=== PATIENT | male | born 2000 | race Caucasian/White ===

== ENCOUNTER 2022-11-27 18:29 | Emergency (ER) | payer BC, SELFPAY ==
[2022-11-27] VITALS (11 sets, daily range): BP systolic 111–136; BP diastolic 66–85; PULSE 85–112; RESP 17–32; TEMP 36.3; O2SAT 98–99
--- NOTE | ~2022-11-27 | US_ITS ---
EXAMINATION: US venous doppler LE RT DATE: 11/27/2022 20:10 INDICATION: Right lower limb swelling TECHNIQUE: Yepez scale images without and with compression and Doppler images of the right lower extre mity veins were obtained. COMPARISON: None FINDINGS: There is thrombosis of the right common femoral vein, profunda femoral vein, femoral vein, popliteal vein, peroneal trunk, posterior tibial veins, and greater saphenous vein. IMPRESSION: 1. Venous thrombosis of all visualized right lower limb veins. These findings were discussed with Dr. Bradley Burroughs MD in the Emergency Department at 2026 hours on 11/27/2022. Reviewed, dictated and finalized at location F. IMPRESSION: 1. Venous thrombosis of all visualized right lower limb veins. These findings w ere discussed with Dr. Bradley Burroughs MD in the Emergency Department at 2026 hours on 11/27/2022.
--- NOTE | 2022-11-27 19:32 | ED.GENADULT ---
HPI - General Adult General Chief complaint: Extremity Injury, Lower Stated complaint: fall Time Seen by Provider: 11/27/22 19:17 History of Present Illness HPI narrative: 22-year-old male presented the emergency department for evaluation of a right leg injury. Patient states on Thursday he tripped while walking up some stairs and did injure his right leg. Patient states that the pain was not bearable but that when he woke up this morning he noticed that his right leg was swollen. Patient denies any associated chest pain or shortness of breath. Related Data Allergies Allergy/AdvReac Type Severity Reaction Status Date / Time ibuprofen Allergy Severe MOOD Verified 11/27/22 18:36 SWINGS, THROAT SWELLING Review of Systems Review of Systems: All systems reviewed & are unremarkable except as noted in HPI and below Exam Narrative: APPEARANCE: Well appearing, no pain, no distress, well-nourished. HEAD: normocephalic, atraumatic. EYES: PERRLA/EOMI, conjunctivae clear. NOSE: Normal no drainage NECK: Supple. No adenopathy, no masses. RESPIRATORY: Airway patent, respirations nonlabored. Clear to auscultation bilaterally, no rales, rhonchi, wheezing. CARDIOVASCULAR: Regular rate and rhythm without murmurs rubs or gallops. ABDOMINAL: Soft, nontender, nondistended, normal bowel sounds MUSCULOSKELETAL: Mild right leg erythema and edema. Medial thigh tenderness to palpation NEURO: Alert. Cranial nerves II through XII intact. Grossly intact SKIN: Warm, dry. Normal Color Course Course Emergency Course: 22-year-old male with with pain and erythema of right lower extremity. Ultrasound was ordered to rule out for DVT. 8:45 PM radiology called to report extensive DVT through the right lower extremity. [facility] was called for vascular consult due to the extensive DVT. 9:01 PM. Case was discussed with vascular at [facility] and patient was accepted for transfer. Awaiting call from hospitalist. Vascular recommended to start the patient on heparin and this was started in the ED. Patient was updated on the results of his work-up and plan for transfer. All question concerns were addressed. Patient continues to deny any chest pain or shortness of breath and patient's vital signs are within normal limits. On reexamination patient continues to have strong pedal pulses of the right lower extremity. 9:09 PM discussed case with the hospitalist, Dr. Elizondo and patient was accepted to med telemetry at [facility]. Vital Signs Vital signs: Vital Signs Temperature 97.3 F L 11/27/22 18:37 Pulse Rate 112 H 11/27/22 18:37 Respiratory Rate 18 11/27/22 18:37 Blood Pressure 136/85 11/27/22 18:37 Pulse Oximetry 98 11/27/22 18:37 Oxygen Delivery Room Air 11/27/22 18:37 Temperature 97.3 F L 11/27/22 18:37 Pulse Rate 85 11/27/22 23:01 Respiratory Rate 17 11/27/22 23:01 Blood Pressure 125/79 11/27/22 23:01 Pulse Oximetry 98 11/27/22 23:01 Oxygen Delivery Room Air 11/27/22 18:37 Medical Decision Making Vital Signs Vital Signs: Vital Signs Temperature 97.3 F L 11/27/22 18:37 Pulse Rate 112 H 11/27/22 18:37 Respiratory Rate 18 11/27/22 18:37 Blood Pressure 136/85 11/27/22 18:37 Pulse Oximetry 98 11/27/22 18:37 Oxygen Delivery Room Air 11/27/22 18:37 Temperature 97.3 F L 11/27/22 18:37 Pulse Rate 85 11/27/22 23:01 Respiratory Rate 17 11/27/22 23:01 Blood Pressure 125/79 11/27/22 23:01 Pulse Oximetry 98 11/27/22 23:01 Oxygen Delivery Room Air 11/27/22 18:37 Lab Data Lab results reviewed: Yes I reviewed the patient's lab results. 11/27/22 19:42 11/27/22 19:42 Labs: Lab Results 11/27/22 11/27/22 11/27/22 Range/Units 19:42 19:42 19:42 WBC 11.2 H (4.5-10.0) K/mm3 RBC 5.14 (4.6-6.20) M/mm3 Hgb 14.5 (14.0-18.0) g/dL Hct 44.0 (42.0-52.0) % MCV 85.6 (80-100) fl MCH 28.2 (26-34) pg MCHC 33.0 (32-36) g/
[2022-11-27 19:56] LABS: Basophils Absolute Auto 0.1 K/mm3 (0.0-0.1); Basophils Percent Auto 1.2 % (0.2-1.2); Eosinophils Absolute Auto 0.3 K/mm3 (0-0.3); Eosinophils Percent Auto 2.7 % (0-4.4); Hemoglobin 14.5 g/dL (14.0-18.0); Immature Granulocyte Absolute 0.23 K/mm3 (0.00-0.031); Immature Platelet Fraction Pct 6.5 % (0.9-11.2); Lymphocytes Absolute Auto 2.35 K/mm3 (0.9-3.2); Lymphocytes Percent Auto 20.9 % (18.3-44.2); Mean Corpuscular Hemoglobin 28.2 pg (26-34); Mean Corpuscular Volume 85.6 fl (80-100); Mean Platelet Volume 10.5 fl (7.4-10.4); Monocytes Absolute Auto 1.1 K/mm3 (0.1-0.6); Monocytes Percent Auto 9.8 % (2.6-8.5); Neutrophils Absolute Auto 7.1 K/mm3 (1.3-6.7); Neutrophils Percent Auto 63.4 % (45.5-73.1); Platelet Count Result 134 k/mm3 (150-375); Red Blood Count 5.14 M/mm3 (4.6-6.20); Red Cell Distribution Width 13.5 % (11.5-14.5); White Blood Count 11.2 K/mm3 (4.5-10.0)
[2022-11-27 20:05] LABS: Alanine Aminotransferase 92 U/L (6-50); Albumin Level 4.3 g/dL (3.5-5.1); Alkaline Phosphatase 107 U/L (38-126); Anion Gap 10 mmol/L (8-16); Aspartate Amino Transferase 34 U/L (17-59); Blood Urea Nitrogen 15 mg/dL (9-20); Calcium 8.9 mg/dL (8.4-10.2); Carbon Dioxide 26 mmol/L (22-30); Chloride 100 mmol/L (98-107); Estimated CRCL calculation 167 ml/min; Estimated Glomerular Filt Rate > 60; Glucose 93 mg/dL (65-110); Potassium 3.4 mmol/L (3.4-5.0); Sodium 136 mmol/L (137-145)
[2022-11-27 20:07] LABS: INR 1.2; Prothrombin Time 14.3 Seconds (11.1-14.7)
[2022-11-27 20:08] LABS: Partial Thromboplastin Time 38.1 SECONDS (22.3-36.8)
[2022-11-27 20:19] LABS: Anisocytosis 1+ (NORMAL); Platelet Estimate Adequate (Adequate)
[2022-11-27 20:20] LABS: Atypical Lymphocytes Present; Schistocytes None Seen (NORMAL)
[2022-11-27] MEDS: fentaNYL CITRATE INJ (*CRX) 100 MCG/2 ML VIAL 62.4 MCG IV PUSH (20:33)
--- NOTE | 2022-11-27 21:01 | ECG_ITS ---
Measurements Intervals [place] Rate: 89 P: 18 UT: 112 QRS: 50 QRSD: 93 T: 22 QT: 352 QTc: 430 Interpretive Statements SINUS RHYTHM WITH SINUS ARRHYTHMIA WITH SHORT UT INTERVAL BASELINE ARTIFACT- III BORDERLINE ECG NO PREVIOUS ECG AVAILABLE FOR COMPARISON Electronically Signed On 11-27-2022 22:36:57 CDT by Johnnie Lam D.O.
[2022-11-27] MEDS: HEPARIN SODIUM 5,000 UNITS/ML VIAL 7500 UNITS IV PUSH (21:28)
[2022-11-27] MEDS: HEPARIN SOD/D5W 100 UNITS/ML 25,000 UNITS/250 ML BAG 15 UNITS IV CONT (21:29)
[2022-11-27] MEDS: HYDROmorphone HCL INJ (*CRX) 1 MG/ML SYR IV PUSH (21:44)
--- NOTE | 2022-11-27 22:44 | PC.NURSE ---
attempted to call report to Candice. RN unable to take report at this time.
--- NOTE | 2022-11-27 23:15 | PC.NURSE ---
attempted to call report. Per Marie at [facility], bed hasn't been assigned yet. Marie to call bed placement and call back with update.
--- NOTE | 2022-11-27 23:36 | PC.NURSE ---
Report given to Marie CORREA at [facility] for patient transfer. all questions answered at time of report.
[2022-11-28] MEDS: HYDROmorphone HCL INJ (*CRX) 1 MG/ML SYR IV PUSH (00:08)
--- NOTE | 2022-11-28 00:39 | PC.NURSE ---
Patient transfering with heparin infusing to [facility]
== END 2022-11-28 00:40 | disposition short-term general hospital (02) ==
PROVIDERS: Emergency Provider Emergency Medicine
DX: I82.411 Acute embolism and thrombosis of right femoral vein (principal); I82.431 Acute embolism and thrombosis of right popliteal vein; I82.451 Acute embolism and thrombosis of right peroneal vein; I82.441 Acute embolism and thrombosis of right tibial vein; I82.811 Embolism and thrombosis of superficial veins of right lower extremity
CPT/HCPCS: 36415; 80053; 85025; 85055; 85610; 85730; 93005; 93971; 96374; 96375; 99285; J1170; J1644; J3010

== ENCOUNTER 2023-02-01 19:35 | Observation (INO) | payer BC, SELFPAY ==
--- NOTE | ~2023-02-01 | XR_ITS ---
Clinical Indication: Chest pain PA and lateral views of the chest: Comparison: None Findings: The lungs are clear, without evidence of focal consolidation or pleural effusion. Cardiome diastinal silhouette is within normal limits. Bones and soft tissues are unremarkable. Impression: Normal chest. Reviewed, dictated and finalized at location . Impression: Normal chest.
--- NOTE | ~2023-02-01 | CT_ITS ---
Clinical Indication: Chest pain CT Scan of the Chest with Contrast: Technique: Contiguous sections were acquired throughout the chest after intravenous administration of 100 cc of Omnipaque 350. Dose reduction technique was used on this scan by utilizing automated expos ure control and iterative reconstruction technique. The dose-length product (DLP) was 786.24 mGy-cm. Findings: There is no evidence of any significant mediastinal, hilar or axillary lymphadenopathy. Suspected sin gle small pulmonary most noted in a segmental branch in the left lower lobe. There is no evidence of aortic dissection or aneurysm. There is no evidence of pleural or pericardial effusion. The lungs are clear, aside from focal atelectasis or scarring at the lingula. Images through the upper abdomen reveal no abnormalities. Impression: Suspected single small pulmonary embolus in a segmental branch the left lower lobe. Focal atelectasis or scarring at the lingula, otherwise clear lungs.. Reviewed, dictated and finalized at [facility] [place]. Impression: Suspected single small pulmonary embolus in a segmental branch the left lower l obe. Focal atelectasis or scarring at the lingula, otherwise clear lungs..
--- NOTE | 2023-02-01 19:39 | ECG_ITS ---
Measurements Intervals [place] Rate: 77 P: 40 [place]: 129 QRS: 64 QRSD: 109 T: 47 QT: 386 QTc: 438 Interpretive Statements SINUS RHYTHM WITH SINUS ARRHYTHMIA POSSIBLE RIGHT VENTRICULAR CONDUCTION DELAY [RSR (QR) IN V1/V2] BORDERLINE ECG Electronically Signed On 02-02-2023 10:19:46 CDT by Deven Mittal M.D.
[2023-02-01 19:47] VITALS: O2SAT 98
[2023-02-01 19:53] VITALS: BP 133/82; PULSE 75; RESP 19; TEMP 36.4; O2SAT 99
[2023-02-01 19:59] LABS: Basophils Absolute Auto 0.1 K/mm3 (0.0-0.1); Basophils Percent Auto 1.6 % (0.2-1.2); Eosinophils Absolute Auto 0.5 K/mm3 (0-0.3); Eosinophils Percent Auto 6.5 % (0-4.4); Hematocrit 50.1 % (42.0-52.0); Hemoglobin 16.9 g/dL (14.0-18.0); Immature Granulocyte Absolute 0.02 K/mm3 (0.00-0.031); Immature Granulocyte Percent A 0.3 % (0-0.5); Lymphocytes Absolute Auto 1.74 K/mm3 (0.9-3.2); Lymphocytes Percent Auto 23.7 % (18.3-44.2); Mean Corpuscular HGB Conc 33.7 g/dl (32-36); Mean Corpuscular Hemoglobin 28.8 pg (26-34); Mean Corpuscular Volume 85.5 fl (80-100); Monocytes Absolute Auto 0.6 K/mm3 (0.1-0.6); Monocytes Percent Auto 8.5 % (2.6-8.5); Neutrophils Absolute Auto 4.4 K/mm3 (1.3-6.7); Neutrophils Percent Auto 59.4 % (45.5-73.1); Platelet Count Result 217 k/mm3 (150-375); Red Blood Count 5.86 M/mm3 (4.6-6.20); Red Cell Distribution Width 13.6 % (11.5-14.5); White Blood Count 7.3 K/mm3 (4.5-10.0)
[2023-02-01 20:09] LABS: Prothrombin Time 13.7 Seconds (11.1-14.7)
[2023-02-01 20:10] LABS: Partial Thromboplastin Time 56.4 SECONDS (22.3-36.8)
[2023-02-01 20:14] LABS: Alanine Aminotransferase 48 U/L (6-50); Albumin Level 4.9 g/dL (3.5-5.1); Alkaline Phosphatase 86 U/L (38-126); Anion Gap 10 mmol/L (8-16); Aspartate Amino Transferase 39 U/L (17-59); Bilirubin,Total 0.9 mg/dL (0.2-1.3); Blood Urea Nitrogen 16 mg/dL (9-20); Calcium 9.2 mg/dL (8.4-10.2); Carbon Dioxide 25 mmol/L (22-30); Chloride 106 mmol/L (98-107); Estimated CRCL calculation 149 ml/min; Estimated Glomerular Filt Rate > 60; Glucose 101 mg/dL (65-110); Lipase 392 U/L (23-300); Potassium 4.3 mmol/L (3.4-5.0); Sodium 141 mmol/L (137-145)
[2023-02-01 20:21] LABS: NT Pro B Type Natriuretic Pept < 20 pg/mL (19.9-100); Troponin I < 0.012 ng/mL (0.000-0.034)
--- NOTE | 2023-02-01 20:32 | ED.GENADULT ---
HPI - General Adult General Chief complaint: Chest Pain Stated complaint: chest pain, right arm pain Time Seen by Provider: 02/01/23 19:44 History of Present Illness HPI narrative: Patient a 22-year-old gentleman who presents the emergency department with chief complaint of chest pain. The patient reports that he has history of DVT that he was treated with a surgical procedure and then was supposed to be on oral anticoagulants patient reports he had 1 month of the medication and then there was issues with his insurance and was unable to continue the anticoagulant the patient reports that his primary doctor is planning on starting him on Coumadin this week after he gets a CT scan to evaluate for pulmonary embolism the patient states for the last 3 days has been having worsening discomfort in his chest and states that he is concerned that he may have a PE Related Data Allergies Allergy/AdvReac Type Severity Reaction Status Date / Time ibuprofen Allergy Severe MOOD Verified 02/01/23 19:52 SWINGS, THROAT SWELLING Review of Systems Review of Systems: A 10 system review of systems was completed on the patient and is negative except for what is stated in the HPI. Nursing and ancillary documentation was reviewed. Exam Narrative: GENERAL: Well-appearing, well-nourished, and in no acute distress. HEAD: Normocephalic, atraumatic. EYES: PERRLA and EOMI. ENT: Nares clear, no rhinorrhea or epistaxis. Mucous membranes moist. NECK: Supple. CHEST: Clear to auscultation. No respiratory distress. HEART: Regular rate and rhythm. No murmur heard. Normal peripheral pulses. ABDOMEN: Soft, nontender, nondistended, normal active bowel sounds. EXTREMITIES: Normal range of motion. No edema. SKIN: Warm, dry, no rash. NEURO: No focal deficits. Alert and oriented x3. PSYCH: Normal mood and affect. Course Vital Signs Vital signs: Vital Signs Pulse Oximetry 98 02/01/23 19:47 Oxygen Delivery Room Air 02/01/23 19:47 Temperature 36.4 C 02/01/23 19:53 Pulse Rate 72 02/01/23 21:00 Respiratory Rate 20 02/01/23 21:00 Blood Pressure 125/83 02/01/23 21:00 Pulse Oximetry 98 02/01/23 21:00 Oxygen Delivery Room Air 02/01/23 19:47 Medical Decision Making [facility] Narrative Medical decision making narrative: Differential diagnosis includes pulmonary embolism, ACS, noncardiac chest pain EKG was obtained which showed sinus rhythm rate of [address] elevation or ST depression Laboratory studies were obtained which showed a normal CBC normal electrolytes normal liver enzymes lipase was 392 chest x-ray showed no acute abnormalities CTA of the chest showed a small subsegmental pulmonary embolism in the left lower lobe Due to the patient being unable to obtain a DOAC due to insurance related issues and knowing that the patient will be started on Coumadin patient was admitted overnight for heparin bridging the case was discussed with Dr. Cunningham who accepted the patient Vital Signs Vital Signs: Vital Signs Pulse Oximetry 98 02/01/23 19:47 Oxygen Delivery Room Air 02/01/23 19:47 Temperature 36.4 C 02/01/23 19:53 Pulse Rate 72 02/01/23 21:00 Respiratory Rate 20 02/01/23 21:00 Blood Pressure 125/83 02/01/23 21:00 Pulse Oximetry 98 02/01/23 21:00 Oxygen Delivery Room Air 02/01/23 19:47 Lab Data 02/01/23 19:50 02/01/23 19:50 Labs: Lab Results 02/01/23 02/01/23 02/01/23 Range/Units 19:50 19:50 19:50 WBC 7.3 (4.5-10.0) K/mm3 RBC 5.86 (4.6-6.20) M/mm3 Hgb 16.9 (14.0-18.0) g/dL Hct 50.1 (42.0-52.0) % MCV 85.5 (80-100) fl MCH 28.8 (26-34) pg MCHC 33.7 (32-36) g/dl RDW 13.6 (11.5-14.5) % Plt Count 217 D (150-375) k/mm3 MPV 10.0 (7.4-10.4) fl Immature Gran % (Auto) 0.3 (0-0.5) % Neut % (Auto) 59.4 (45.5-73.1) % Lymph % (Auto) 23.7 (18.3-44.2) % [place] % (Auto) 8.5 (2
[2023-02-01 21:00] VITALS: BP 125/83; PULSE 72; RESP 20; O2SAT 98
--- NOTE | 2023-02-01 22:11 | PM.IMHP ---
H&P: HPI History of Present Illness Date/Time: 02/01/23 22:11 Chief Complaint: Chest pain. Narrative: This is a 22-year-old male with past medical history significant for right lower extremity DVT, thrombectomy, this was roughly 4 weeks ago, patient has been unable to get his Eliquis as a result of this has been without anticoagulation. Today presented to the emergency room after he has had chest pain localized to the retrosternal area and shortness of breath with mild exertion denies hemoptysis, has had some cough nonproductive, dry. No fevers, no rigors, no chills, no nausea, no vomiting, no abdominal pain, no leg swelling, no ankle swelling, no calves swelling. Preliminary workup was significant for a chest x-ray was reported as: Clinical Indication: Chest pain ?PA and lateral views of the chest: Comparison: None Findings: The lungs are clear, without evidence of focal consolidation or pleural effusion.? Cardiomediastinal silhouette is within normal limits. Bones and soft tissues are unremarkable. ? Impression: ? Normal chest. A CT was reported as: Clinical Indication: Chest pain CT Scan of the Chest with Contrast: Technique: Contiguous sections were acquired throughout the chest after intravenous administration of 100 cc of Omnipaque 350. Dose reduction technique was used on this scan by utilizing automated exposure control and iterative reconstruction technique. The dose-length product (DLP) was 786.24 mGy-cm. Findings: There is no evidence of any significant mediastinal, hilar or axillary lymphadenopathy. Suspected single small pulmonary most noted in a segmental branch in the left lower lobe. There is no evidence of aortic dissection or aneurysm. There is no evidence of pleural or pericardial effusion. The lungs are clear, aside from focal atelectasis or scarring at the lingula. Images through the upper abdomen reveal no abnormalities. Impression: Suspected single small pulmonary embolus in a segmental branch the left lower lobe. Focal atelectasis or scarring at the lingula, otherwise clear lungs.. Review of Systems Review of Systems: Chest pain, shortness of breath with mild exertion. Constitutional: Constitutional: Denies chills, Denies fatigue, Denies fever(s), Denies malaise, Denies night sweats, Denies poor appetite and Denies weakness Eyes: Eyes: Denies change in vision ENT: Denies dysphagia and Denies odynophagia Cardiovascular: Cardiovascular: Reports chest pain, Denies leg edema, Denies lightheadedness, Reports radiating jaw, neck or arm pain, Denies palpitations, Reports dyspnea on exertion and Denies orthopnea Respiratory: Respiratory: Reports cough, Denies excessive phlegm production and Denies dyspnea Gastrointestinal: Gastrointestinal: Denies abdominal pain, Denies dyspepsia, Denies heartburn, Denies diarrhea, Denies nausea and Denies vomiting Genitourinary: Genitourinary: Reports no additional male genitourinary complaints and Reports as per HPI Musculoskeletal: Musculoskeletal: Denies myalgias Integumentary/Breasts: Skin/Breast: Denies rash Neurologic: Denies focal weakness and Denies Sensory deficit (Neuro) Psychiatric: Psychiatric: Reports no additional psychiatric complaints and Reports as per HPI Endocrine: Endocrine: Denies cold intolerance, Denies flushing, Denies heat intolerance, Denies polyphagia, Denies polydipsia and Denies palpitations Hematologic/Lymphatic: Hematologic/Lymphatic: Reports no additional hematologic/lymphatic complaints and Reports as per HPI Allergic/Immunologic: Allergic/Immunologic: Reports no additional allergic/immunologic complaints and Reports as per HPI PMFSH Family History Family History (Updated 02/01/23 @ 23:07 by Leilani Soler RN) Father Acute myocardial infarction History of blood clots Cerebrovascular accident Congestive heart failure Diabetes mellitus Mother Diabetes mellitus Hypertension Social History
[2023-02-01] MEDS: HEPARIN SODIUM 5,000 UNITS/ML VIAL 8500 UNITS IV PUSH (22:14)
[2023-02-01] MEDS: HEPARIN SOD/D5W 100 UNITS/ML 25,000 UNITS/250 ML BAG 15 UNITS IV CONT (22:20)
[2023-02-01 22:25] VITALS: BP 116/76; PULSE 75; RESP 15; O2SAT 98
--- NOTE | 2023-02-01 23:04 | ADMGEN ---
This patient, Tramaine Lawrence, was admitted to Medical Room 249-01. Patient/family oriented to hospital policies and general routines including ID bracelet, bed and alarms, visiting hours, pain management, procedures, bathroom and other care routines, personal items, smoking policy, room service/diet, and visiting hours. Information on how to activate the Rapid Response Team has been discussed. Patient/Family are encouraged to report perceived risks to care and to ask questions if they do not understand what they are told or what they should do.
[2023-02-01 23:12] VITALS: BP 131/75; PULSE 72; RESP 16; TEMP 36.2; O2SAT 99
[2023-02-02] VITALS (11 sets, daily range): BP systolic 120–131; BP diastolic 78–84; PULSE 63–87; RESP 16–20; TEMP 36–36.8; O2SAT 96–99
--- NOTE | 2023-02-02 | ECHO_ITS ---
Patient Info Name: Tramaine Lawrence Age: 22 years : 2000 Gender: Male Ht: 69 in Wt: 235 lbs BSA: 2.32 m2 HR: 76 bpm BP: 130 / 84 mmHg Heart Rhythm: Sinus Rhythm Technical Quality: Good Exam Date: 02/02/2023 2:34 PM Exam Location: [facility] Pulmonary Patient Status: Outpatient Admit Date: 02/01/2023 Staff Ordering Physician: Joanne Boyec MD Milling Machinist: Roxanne Hernandez RDCS Attending Provider: Joanne Boyce MD Referring Physician: Austen TREVIÑO; Exam Type: CA echo doppler color flow Study Info Indications - PE Complete two-dimensional, color flow and Doppler transthoracic echocardiogram is performed. Summary 1. Complete two-dimensional, color flow and Doppler transthoracic echocardiogram is performed. 2. Left ventricular chamber dimension is normal. 3. Left ventricular systolic function is normal, estimated at 60-65%. 4. Right ventricular chamber dimension is normal. 5. Right ventricular systolic function is normal. 6. No significant valvular disease. Left Ventricle Left ventricular chamber dimension is normal. Left ventricular systolic function is normal, estimated at 60-65%. There is no increased left ventricular wall thickness. The left ventricular diastolic function is normal. Global longitudinal strain is normal at -18 %. Right Ventricle Right ventricular chamber dimension is normal. Right ventricular systolic function is normal. Left Atria Left atrial chamber dimension is normal. Right Atria Right atrial chamber dimension is normal. Atrial Septum Intact interatrial septum visualized by color flow imaging. Aortic Valve The aortic valve is trileaflet. There is no aortic valve stenosis. There is no aortic valve regurgitation. Pulmonic Valve The pulmonic valve is normal. There is no pulmonic regurgitation. Mitral Valve There is no mitral valve stenosis. There is trace mitral valve regurgitation. Tricuspid Valve There is trace tricuspid valve regurgitation. Pericardium/Pleural There is no pericardial effusion. Inferior Vena Cava Normal inferior vena cava with >50% collapse upon inspiration consistent with normal right atrial pressure, 3 mmHg. Aorta The aortic root size at the sinus of Valsalva is normal. Left Ventricular Outflow Tract Name Value Normal LVOT 2D LVOT Diameter 2.2 cm LVOT Doppler LVOT Peak Gradient 4 mmHg LVOT Mean Gradient 2 mmHg LVOT VTI 22 cm LVOT VTI/AV VTI Ratio 1.0 LVOT Stroke Volume 83 ml LVOT CO 4.6 l/min LVOT CI 2.0 l/min/m2 Pulmonic Valve Name Value Normal RVOT Doppler RVOT Peak Gradient 2 mmHg PV Doppler PV Peak Gradient 3 mmHg Cassy
[2023-02-02 02:20] LABS: Troponin I < 0.012 ng/mL (0.000-0.034)
[2023-02-02 06:00] LABS: Basophils Absolute Auto 0.1 K/mm3 (0.0-0.1); Basophils Percent Auto 1.6 % (0.2-1.2); Eosinophils Absolute Auto 0.6 K/mm3 (0-0.3); Eosinophils Percent Auto 8.1 % (0-4.4); Hematocrit 48.6 % (42.0-52.0); Hemoglobin 16.3 g/dL (14.0-18.0); Immature Granulocyte Absolute 0.03 K/mm3 (0.00-0.031); Immature Granulocyte Percent A 0.4 % (0-0.5); Lymphocytes Absolute Auto 2.53 K/mm3 (0.9-3.2); Lymphocytes Percent Auto 37.3 % (18.3-44.2); Mean Corpuscular HGB Conc 33.5 g/dl (32-36); Mean Corpuscular Hemoglobin 28.8 pg (26-34); Mean Platelet Volume 10.4 fl (7.4-10.4); Monocytes Absolute Auto 0.6 K/mm3 (0.1-0.6); Monocytes Percent Auto 8.7 % (2.6-8.5); Neutrophils Percent Auto 43.9 % (45.5-73.1); Platelet Count Result 186 k/mm3 (150-375); Red Blood Count 5.65 M/mm3 (4.6-6.20); Red Cell Distribution Width 13.5 % (11.5-14.5); White Blood Count 6.8 K/mm3 (4.5-10.0)
[2023-02-02 06:39] LABS: Partial Thromboplastin Time 196.7 SECONDS (22.3-36.8)
[2023-02-02 12:56] LABS: Partial Thromboplastin Time 89.7 SECONDS (22.3-36.8)
--- NOTE | 2023-02-02 13:08 | PM.IMPN ---
Progress Note: A&P Assessment and Plan (1) Pulmonary embolism: Qualifiers: Acute cor pulmonale presence: unspecified Chronicity: acute Pulmonary embolism type: unspecified Qualified Code(s): I26.99 - Other pulmonary embolism without acute cor pulmonale Code(s): I26.99 - Other pulmonary embolism without acute cor pulmonale Status: Acute Plan Presented with chest pain. Recent history of DVT requiring thrombectomy October 2022. Was treated with Eliquis which he only took for a month and had issue with insurance. Been off since 2-3 weeks now. Plan to be started on Coumadin after CT scan evaluation but presented back again with chest pain. Labs unremarkable discussed with the care coordination CTA done showed suspected single small pulmonary embolism in the segmental branch of left lower lobe along with focal atelectasis or scarring at the lingula otherwise clear lungs. Will initiate Lovenox and warfarin. Insurance issue with DOACs Subjective Date/time seen: 02/02/23 13:08 Interval history: Reviewed. Discussed with the patient and the . Presented with chest pain. Recent history of DVT requiring thrombectomy October 2022. Was treated with Eliquis which he only took for a month and had issue with insurance. Been off since 2-3 weeks now. Plan to be started on Coumadin after CT scan evaluation but presented back again with chest pain Review of Systems Review of Systems: All systems reviewed & are unremarkable except as noted in HPI and below Exam Narrative: GENERAL: Well-appearing, well-nourished, and in no acute distress. HEAD: Normocephalic, atraumatic. EYES: PERRLA and EOMI. ENT: Nares clear, no rhinorrhea or epistaxis.? Mucous membranes moist. NECK: Supple. Nontender CHEST: Clear to auscultation.? No respiratory distress. HEART: Regular rate and rhythm.? No murmur heard.? Normal peripheral pulses. ABDOMEN: Soft, nontender, nondistended, normal active bowel sounds. EXTREMITIES: Normal range of motion.? No edema. SKIN: Warm, dry, no rash. NEURO: No focal deficits.? Alert and oriented x3. PSYCH: Normal mood and affect. Objective Data Vital Signs Vital Signs: Vital Signs - 24 hr 02/01/23 19:47 02/01/23 19:53 02/01/23 21:00 Temperature 97.6 F Pulse Rate 75 72 Respiratory Rate 19 20 Blood Pressure 133/82 125/83 Pulse Oximetry 98 99 98 Oxygen Delivery Room Air 02/01/23 22:25 02/01/23 23:12 02/01/23 23:12 Temperature 97.2 F L Pulse Rate 75 72 Respiratory Rate 15 16 Blood Pressure 116/76 131/75 Pulse Oximetry 98 99 Oxygen Delivery Room Air 02/02/23 00:00 02/02/23 04:00 02/02/23 06:06 Temperature Pulse Rate 86 63 63 Respiratory Rate 16 Blood Pressure Pulse Oximetry 99 Oxygen Delivery Room Air 02/02/23 06:00 02/02/23 08:25 02/02/23 08:00 Temperature 96.8 F L Pulse Rate 71 Respiratory Rate 16 Blood Pressure 130/84 Pulse Oximetry 98 98 98 Oxygen Delivery Room Air Room Air 02/02/23 08:00 Temperature Pulse Rate 75 Respiratory Rate Blood Pressure Pulse Oximetry Oxygen Delivery Intake/Output Intake/Output: Intake & Output 01/30/23 01/31/23 02/01/23 02/02/23 23:59 23:59 23:59 23:59 Intake Total 1852 Balance 1852 Meds/Results Medications: Active Medications Generic Name Dose Route Start Last Admin Trade Name Freq PRN Reason Stop Dose Admin Acetaminophen 1,000 mg 02/02/23 00:18 Acetaminophen 500 Mg Tablet PO Q6H PRN Mild Pain (1-3) or Fever Al Hydrox/Mg Hydrox/Simethicone 30 ml 02/02/23 00:22 Mag Hydrox/Al Hydrox/Simeth 30 Ml Udc PO Q6H PRN Indigestion Albuterol 2.5 mg 02/02/23 00:18 Albuterol Sulfate Neb 2.5 Mg/3 Ml Inh INHALATION Q6HRT PRN Shortness Of Breath Heparin Sodium (Porcine) 3,500 units 02/01/23 21:49 Heparin Sodium 5,000 Units/Ml Vial IV PUSH PRN PRN aPTT 55 - 70 seconds Heparin Sodium (Porcine) 7,000 units
[2023-02-02] MEDS: WARFARIN (*PBKC) 5 MG TABLET PO (17:59)
[2023-02-02] MEDS: ENOXAPARIN 120 MG/0.8 ML SYRINGE 107 MG SUB-Q (17:59)
[2023-02-02 19:55] LABS: Partial Thromboplastin Time 63.6 SECONDS (22.3-36.8)
[2023-02-03] VITALS: PULSE 69
[2023-02-03 04:00] VITALS: PULSE 59
[2023-02-03 06:00] VITALS: BP 121/67; PULSE 68; RESP 20; TEMP 36.1; O2SAT 99
[2023-02-03 06:11] LABS: Basophils Absolute Auto 0.1 K/mm3 (0.0-0.1); Basophils Percent Auto 1.7 % (0.2-1.2); Eosinophils Absolute Auto 0.5 K/mm3 (0-0.3); Eosinophils Percent Auto 8.3 % (0-4.4); Hematocrit 50.2 % (42.0-52.0); Hemoglobin 16.6 g/dL (14.0-18.0); Immature Granulocyte Absolute 0.02 K/mm3 (0.00-0.031); Immature Granulocyte Percent A 0.3 % (0-0.5); Lymphocytes Absolute Auto 2.13 K/mm3 (0.9-3.2); Lymphocytes Percent Auto 32.9 % (18.3-44.2); Mean Corpuscular HGB Conc 33.1 g/dl (32-36); Mean Corpuscular Hemoglobin 28.3 pg (26-34); Mean Corpuscular Volume 85.5 fl (80-100); Monocytes Absolute Auto 0.5 K/mm3 (0.1-0.6); Monocytes Percent Auto 7.3 % (2.6-8.5); Neutrophils Absolute Auto 3.2 K/mm3 (1.3-6.7); Neutrophils Percent Auto 49.5 % (45.5-73.1); Platelet Count Result 197 k/mm3 (150-375); Red Blood Count 5.87 M/mm3 (4.6-6.20); Red Cell Distribution Width 13.4 % (11.5-14.5); White Blood Count 6.5 K/mm3 (4.5-10.0)
[2023-02-03 06:25] LABS: Alanine Aminotransferase 69 U/L (6-50); Albumin Level 4.3 g/dL (3.5-5.1); Alkaline Phosphatase 82 U/L (38-126); Anion Gap 10 mmol/L (8-16); Aspartate Amino Transferase 48 U/L (17-59); Bilirubin,Total 0.7 mg/dL (0.2-1.3); Blood Urea Nitrogen 12 mg/dL (9-20); Calcium 8.8 mg/dL (8.4-10.2); Carbon Dioxide 25 mmol/L (22-30); Chloride 104 mmol/L (98-107); Estimated CRCL calculation 149 ml/min; Estimated Glomerular Filt Rate > 60; Glucose 101 mg/dL (65-110); Magnesium 2.3 mg/dL (1.6-2.3); Potassium 4.1 mmol/L (3.4-5.0); Sodium 139 mmol/L (137-145)
[2023-02-03] MEDS: ENOXAPARIN 120 MG/0.8 ML SYRINGE 107 MG SUB-Q (06:36)
[2023-02-03 08:00] VITALS: PULSE 73
[2023-02-03 09:23] LABS: INR 0.9; Prothrombin Time 12.9 Seconds (11.1-14.7)
--- NOTE | 2023-02-03 10:24 | PM.DS ---
DS: Admitting Diagnosis Discharge Date 02/03/2023 Admitting Diagnosis Shortness of breath DS: Discharge Diagnosis Discharge Diagnosis (1) Pulmonary embolism: Qualifiers: Acute cor pulmonale presence: unspecified Chronicity: acute Pulmonary embolism type: unspecified Qualified Code(s): I26.99 - Other pulmonary embolism without acute cor pulmonale Code(s): I26.99 - Other pulmonary embolism without acute cor pulmonale Status: Acute DS: Summary Hospital Course Hospital Course: Presented with chest pain.? 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 Was treated with Eliquis which he only took for a month and had issue with insurance.? Been off since 2-3 weeks now.? Plan to be started on Coumadin after CT scan evaluation but presented back again with chest pain.? Labs unremarkable discussed with the care coordination CTA done showed suspected single small pulmonary embolism in the segmental branch of left lower lobe along with focal atelectasis or scarring at the lingula otherwise clear lungs.? Initiated on lovenox and warfarin.? Insurance issue with DOACs. Will need PT INR monitoring per PCP. Lovenox for 7 days. Warfarin 5 mg daily started here. Recheck INR this Thursday and next on Thursday. INR goal 2-3. Discussed with the patient and his family in detail. Verbalizes understanding. He will follow up with PCP within this week or early next week Time Spent with Patient Time attestation: Total time spent providing and/or coordinating discharge services: 40 minutes Exam Narrative: GENERAL: Well-appearing, well-nourished, and in no acute distress. HEAD: Normocephalic, atraumatic. EYES: PERRLA and EOMI. ENT: Nares clear, no rhinorrhea or epistaxis.? Mucous membranes moist. NECK: Supple. Nontender CHEST: Clear to auscultation.? No respiratory distress. HEART: Regular rate and rhythm.? No murmur heard.? Normal peripheral pulses. ABDOMEN: Soft, nontender, nondistended, normal active bowel sounds. EXTREMITIES: Normal range of motion.? No edema. SKIN: Warm, dry, no rash. NEURO: No focal deficits.? Alert and oriented x3. PSYCH: Normal mood and affect. DS: Data Data Completed and Pending Labs on day of discharge: Labs from last 24 hours 02/03/23 02/03/23 02/02/23 09:02 05:42 19:32 WBC 6.5 RBC 5.87 Hgb 16.6 Hct 50.2 MCV 85.5 MCH 28.3 MCHC 33.1 RDW 13.4 Plt Count 197 MPV 10.0 Immature Gran % (Auto) 0.3 Neut % (Auto) 49.5 Lymph % (Auto) 32.9 Lewis % (Auto) 7.3 Eos % (Auto) 8.3 H Baso % (Auto) 1.7 H Lymph # (Auto) 2.13 Lewis # (Auto) 0.5 Eos # (Auto) 0.5 H Baso # (Auto) 0.1 Abs Immat Gran (auto) 0.02 Absolute Neuts (auto) 3.2 Absolute Nucleated RBC 0.0 Nucleated RBC % 0.0 PT 12.9 INR 0.9 APTT 63.6 H Sodium 139 Potassium 4.1 Chloride 104 Carbon Dioxide 25 Anion Gap 10 BUN 12 Creatinine 0.80 Estim Creat Clear Calc 149 Estimated GFR > 60 Glucose 101 Calcium 8.8 Magnesium 2.3 Total Bilirubin 0.7 AST 48 ALT 69 H Alkaline Phosphatase 82 Total Protein 8.0 Albumin 4.3 02/02/23 12:36 WBC RBC Hgb Hct MCV MCH MCHC RDW Plt Count MPV Immature Gran % (Auto) Neut % (Auto) Lymph % (Auto) Lewis % (Auto) Eos % (Auto) Baso % (Auto) Lymph # (Auto) Lewis # (Auto) Eos # (Auto) Baso # (Auto) Abs Immat Gran (auto) Absolute Neuts (auto) Absolute Nucleated RBC Nucleated RBC % PT INR APTT 89.7 H Sodium Potassium Chloride Carbon Dioxide Anion Gap BUN Creatinine Estim Creat Clear Calc Estimated GFR Glucose Calcium Magnesium Total Bilirubin AST ALT Alkaline Phosphatase Total Protein Albumin Imaging Radiologist's impression: ITS Impressions Chest X-Ray 02/01/23 20:21 Impression: Normal chest. Chest CTA 02/01/23 21:05 Impression: Suspected single small pul
== END 2023-02-03 11:27 | disposition home or self-care (01) ==
LOC: ANHED 21:57 → ANH2MED 02-02 14:17
PROVIDERS: Admitting Provider Internal Medicine; Emergency Provider Emergency Medicine; PCP Internal Medicine; Visit Provider Internal Medicine
DX: I26.99 Other pulmonary embolism without acute cor pulmonale (principal); Z86.718 Personal history of other venous thrombosis and embolism; Z79.1 Long term (current) use of non-steroidal anti-inflammatories (NSAID)
CPT/HCPCS: 36415; 71046; 71275; 80053; 83690; 83735; 83880; 84484; 85025; 85610; 85730; 93005; 93306; 96365; 96372; 99285; A9270; G0378; G0379; J1644; J1650; Q9967